=== PATIENT | male | born 1930 | race Two or more races ===

== ENCOUNTER 2016-11-13 14:05 | Outpatient (CLI) | payer MEDICARE, BC | END 2016-11-13 23:59 | LOC: WOU 14:05 | PROVIDERS: ATTEND Podiatrist Foot & Ankle Surgery | DX: L89.613 Pressure ulcer of right heel, stage 3 (principal); Z86.718 Personal history of other venous thrombosis and embolism; Z79.01 Long term (current) use of anticoagulants; E03.9 Hypothyroidism, unspecified; M62.50 Muscle wasting and atrophy, not elsewhere classified, unspecified site; J45.909 Unspecified asthma, uncomplicated; Z79.51 Long term (current) use of inhaled steroids; Z83.3 Family history of diabetes mellitus; Z80.9 Family history of malignant neoplasm, unspecified | CPT/HCPCS: 11043; A6402 ==

== ENCOUNTER 2016-11-19 11:42 | Outpatient (CLI) | payer MEDICARE, BC | END 2016-11-19 23:59 | disposition home or self-care (01) | LOC: WOU 11:42 | PROVIDERS: ATTEND Podiatrist Foot & Ankle Surgery | DX: L97.919 Non-pressure chronic ulcer of unspecified part of right lower leg with unspecified severity (principal); R60.0 Localized edema | CPT/HCPCS: 93925-TC; 93926-TC ==

== ENCOUNTER 2016-11-22 09:15 | Outpatient (CLI) | payer MEDICARE, BC | END 2016-11-22 23:59 | disposition home health service (06) | LOC: WOU 09:15 | PROVIDERS: ATTEND Podiatrist Foot & Ankle Surgery | DX: L89.613 Pressure ulcer of right heel, stage 3 (principal); S90.811A Abrasion, right foot, initial encounter; X58.XXXA Exposure to other specified factors, initial encounter; Y92.89 Other specified places as the place of occurrence of the external cause; Z99.3 Dependence on wheelchair; Z86.718 Personal history of other venous thrombosis and embolism; Z79.01 Long term (current) use of anticoagulants; E03.9 Hypothyroidism, unspecified; M62.81 Muscle weakness (generalized) | CPT/HCPCS: 11042; A6402 ==

== ENCOUNTER 2016-11-29 09:31 | Outpatient (CLI) | payer MEDICARE, BC | END 2016-11-29 23:59 | disposition home health service (06) | LOC: WOU 09:31 | PROVIDERS: ATTEND Podiatrist Foot & Ankle Surgery | DX: L89.613 Pressure ulcer of right heel, stage 3 (principal); Z83.3 Family history of diabetes mellitus; E03.9 Hypothyroidism, unspecified; Z86.718 Personal history of other venous thrombosis and embolism; Z79.01 Long term (current) use of anticoagulants | CPT/HCPCS: 11043; A6253; A6402; A6407 ==